=== PATIENT | female | born 1970 | race Caucasian/White ===

== ENCOUNTER 2025-02-17 14:00 | Inpatient (IN) | payer OTHER ==
[~2025-02-17] VITALS: Ht 167.6 cm; Wt 119.0 kg
[2025-02-17 14:13] VITALS: BP 141/67
[2025-02-17] MEDS ORDERED: ALBUTEROL S5 MG/1 ML INH (14:58)
[2025-02-17] MEDS ORDERED: CITALOPRAM10 MG PO (14:59)
[2025-02-17] MEDS ORDERED: Ondansetron4 MG PO (15:01)
[2025-02-17] MEDS ORDERED: HYDROXYZINE PAM25 M1 PO (15:02)
[2025-02-17] MEDS ORDERED: CETIRIZINE10 MG PO (15:03)
[2025-02-17] MEDS ORDERED: TOPAMAX50 MG PO (15:04)
[2025-02-17] MEDS ORDERED: OMNICEF300 MG PO (15:05)
[2025-02-17] MEDS ORDERED: PAIN RELIEVER325 MG PO (15:06)
[2025-02-17] MEDS ORDERED: TRAZODONE50 MG PO (15:07)
[2025-02-17] MEDS ORDERED: Motrin,Rufen800 MG PO (15:08)
[2025-02-17] MEDS ORDERED: SYMB80 INH (15:09)
[2025-02-17] MEDS ORDERED: TEMAZEPAM 15 MG CAP PO PRN (15:40)
[2025-02-17] MEDS ORDERED: Acetaminophen/Hydrocodone 5 MG/325 MG TABLET PO PRN (15:40)
[2025-02-17] MEDS ORDERED: BISACODYL 5 MG TAB PO PRN (15:40)
[2025-02-17] MEDS ORDERED: BISACODYL 10 MG SUPP R PRN (15:40)
[2025-02-17] MEDS ORDERED: ACETAMINOPHEN 650 MG SUPP R PRN (15:40)
[2025-02-17] MEDS ORDERED: ACETAMINOPHEN 325 MG TAB PO PRN (15:40)
[2025-02-17] MEDS ORDERED: Ondansetron Hydrochloride 4 MG/2 ML VIAL IV PRN (15:40)
[2025-02-17 16:07] LABS: BASO # 0.1 10*3/uL (0.0-0.1); BASO % 0.8 % (0.0-1.0); EOS # 0.3 10*3/uL (0.0-0.4); EOS % 3.3 % (1.0-4.0); MEAN CELL VOLUME 97.5 fl (81.0-99.0); MEAN CORPUSCULAR HGB 30.0 pg (27.0-31.0); MEAN PLATELET VOLUME 9.1 fl (9.6-12.3); MONO # 0.8 10*3/uL (0.1-1.0); MONO % 9.7 % (3.0-9.0); NEUT # 4.0 10*3/uL (2.3-7.9); NEUT % 49.6 % (47.0-73.0); NUCLEATED RED BLOOD CELL 0.0 % (0.0-0.0); NUCLEATED RED BLOOD CELL 0.0 10*3/uL (0.0-0.0); PLATELET COUNT AUTOMATED 385 10*3/uL (130-400); RED CELL DISTRI WIDTH 14.4 % (0-14.5)
[2025-02-17] MEDS ORDERED: ALBUTEROL 8 GM INHALER INH PRN (16:10)
[2025-02-17] MEDS ORDERED: Ondansetron Hydrochloride 4 MG TAB PO PRN (16:10)
[2025-02-17] MEDS ORDERED: IBUPROFEN 800 MG TAB PO PRN (16:10)
[2025-02-17] MEDS ORDERED: BUDESONIDE 0.5 MG AMP NEB SCH (16:15)
[2025-02-17 16:27] LABS: BUN 14 mg/dl (9-23); SGPT/ALT 25 U/L (5-49)
[2025-02-17 20:40] VITALS: BP 136/71
[2025-02-17] MEDS ORDERED: Budesonide/Formoterol Fumarate 80/4.5 inhaler INH SCH (22:00)
[2025-02-18] VITALS: BP 136/71
[2025-02-18 06:13] LABS: BUN 14 mg/dl (9-23); FREE T4 1.07 ng/dl (0.89-1.76); LDL CHOLESTEROL 109 mg/dL (9-159)
[2025-02-18 06:20] LABS: BASO # 0.1 10*3/uL (0.0-0.1); BASO % 0.6 % (0.0-1.0); EOS # 0.3 10*3/uL (0.0-0.4); EOS % 3.5 % (1.0-4.0); MEAN CELL VOLUME 96.9 fl (81.0-99.0); MEAN CORPUSCULAR HGB 30.1 pg (27.0-31.0); MEAN PLATELET VOLUME 9.2 fl (9.6-12.3); MONO # 0.8 10*3/uL (0.1-1.0); MONO % 9.5 % (3.0-9.0); NEUT # 4.2 10*3/uL (2.3-7.9); NEUT % 49.5 % (47.0-73.0); NUCLEATED RED BLOOD CELL 0.0 % (0.0-0.0); NUCLEATED RED BLOOD CELL 0.0 10*3/uL (0.0-0.0); PLATELET COUNT AUTOMATED 430 10*3/uL (130-400); RED CELL DISTRI WIDTH 14.4 % (0-14.5)
[2025-02-18 06:49] LABS: VITAMIN D, 25-HYDROXY 19.5 ng/mL (30-100)
[2025-02-18] MEDS ORDERED: DEXTROSE 50% 25 GM/50 ML VIAL IV PRN (07:45)
[2025-02-18 08:00] VITALS: BP 134/59
[2025-02-18] MEDS ORDERED: Phosphorus/Potassium 1.45 GM PACKET PO SCH (08:00)
[2025-02-18] MEDS ORDERED: TOPIRAMATE 100 MG TAB PO SCH (10:00)
[2025-02-18] MEDS ORDERED: Cholecalciferol 2,000 UNIT TABLET (50 MCG) PO SCH (10:00)
[2025-02-18] MEDS ORDERED: CITALOPRAM 20 MG TAB PO SCH (10:00)
[2025-02-18] MEDS ORDERED: INSULIN LISPRO 1 UNIT/0.01 ML SQ SCH (11:30)
[2025-02-18 12:00] VITALS: BP 132/50
[2025-02-18 16:00] VITALS: BP 129/63
[2025-02-18 16:27] VITALS: BP 134/59
[2025-02-18 20:00] VITALS: BP 139/76
[2025-02-18] MEDS ORDERED: ATORVASTATIN CALCIUM 20 MG TAB PO SCH (22:00)
[2025-02-19] VITALS: BP 138/78
[2025-02-19 08:00] VITALS: BP 126/53
[2025-02-19] MEDS ORDERED: LISINOPRIL 5 MG TAB PO SCH (10:00)
[2025-02-19 12:00] VITALS: BP 115/48
[2025-02-19 16:00] VITALS: BP 134/78
[2025-02-19 17:11] LABS: BILIRUBIN Negative (Negative); BLOOD Negative (Negative); CLARITY Clear (Clear); COLOR Yellow (Yellow); KETONE Negative (Negative); LEUKO ESTERASE Negative (Negative); NITRITE Negative (Negative); PH 6.5 (4.5-8.0); SPECIFIC GRAVITY 1.015 (1.001-1.030); UROBILINOGEN 1.0 E.U./dl (0.0-1.0)
[2025-02-19 17:19] LABS: BACTERIA 3+; RBC 0-2 rbc/hpf (0-2); WBC 0-2 wbc/hpf (0-5)
[2025-02-19 20:00] VITALS: BP 136/63
[2025-02-19] MEDS ORDERED: NYSTATIN 15 GM BOT T SCH (22:00)
[2025-02-20] VITALS: BP 134/58
[2025-02-20 08:00] VITALS: BP 138/87
[2025-02-20 12:00] VITALS: BP 127/57
[2025-02-20 16:00] VITALS: BP 132/89
[2025-02-20 20:00] VITALS: BP 127/54
[2025-02-21] VITALS: BP 116/56
[2025-02-21 08:41] VITALS: BP 136/80
[2025-02-21 12:00] VITALS: BP 142/87
[2025-02-21] MEDS ORDERED: Ciprofloxacin Hydrochloride 500 MG TAB PO SCH (12:35)
[2025-02-21 16:00] VITALS: BP 138/88
[2025-02-21] MEDS ORDERED: CALCIUM (TUMS) 500MG PO PRN (16:15)
[2025-02-21 20:00] VITALS: BP 140/83
[2025-02-22] VITALS: BP 135/71
[2025-02-22 06:27] LABS: BUN 24 mg/dl (9-23); SGPT/ALT 19 U/L (5-49)
[2025-02-22 08:00] VITALS: BP 124/70
[2025-02-22 12:00] VITALS: BP 115/79
[2025-02-22 16:00] VITALS: BP 140/87
[2025-02-22 20:00] VITALS: BP 117/63
[2025-02-23] VITALS: BP 130/61
[2025-02-23 08:00] VITALS: BP 148/92
[2025-02-23] MEDS ORDERED: NYAMYC15 GM T (11:06)
[2025-02-23] MEDS ORDERED: LISINOPRIL5 MG PO (11:06)
[2025-02-23] MEDS ORDERED: ATORVASTATIN CA20 M1 PO (11:06)
[2025-02-23] MEDS ORDERED: CIPROFLOXACIN500 M4 PO (11:06)
[2025-02-23] MEDS ORDERED: VITAMIN D350 MCG PO (11:06)
[2025-02-23 12:00] VITALS: BP 116/80
== END 2025-02-23 14:59 | DRG 351 ==
LOC: ED 14:00 → 5E 14:51 → EDHOLD 14:51 → 5E 19:00
PROVIDERS: Internal Medicine; ADMIT Internal Medicine; ATTEND Internal Medicine
DX: M16.12 Unilateral primary osteoarthritis, left hip (principal); E44.0 Moderate protein-calorie malnutrition; E83.39 Other disorders of phosphorus metabolism; J44.9 Chronic obstructive pulmonary disease, unspecified; F41.9 Anxiety disorder, unspecified; F17.210 Nicotine dependence, cigarettes, uncomplicated; E66.01 Morbid (severe) obesity due to excess calories; E78.5 Hyperlipidemia, unspecified; N39.0 Urinary tract infection, site not specified; R00.0 Tachycardia, unspecified; F19.11 Other psychoactive substance abuse, in remission; D33.2 Benign neoplasm of brain, unspecified; Z79.899 Other long term (current) drug therapy; Z68.41 Body mass index [BMI] 40.0-44.9, adult; Z79.01 Long term (current) use of anticoagulants; Z79.2 Long term (current) use of antibiotics; Z71.6 Tobacco abuse counseling; Z91.09 Other allergy status, other than to drugs and biological substances